=== PATIENT | female | born 1965 | race African-American/Black ===

== ENCOUNTER 2020-07-16 16:26 | Emergency (ER) | payer OTHER ==
[~2020-07-16] VITALS: Ht 167.6 cm; Wt 122.5 kg
[2020-07-16] MEDS ORDERED: PREDNISONE5 MG PO (17:28)
[2020-07-16] MEDS ORDERED: ATENOLOL25 MG PO (17:29)
[2020-07-16] MEDS ORDERED: COZAAR25 MG PO (17:29)
[2020-07-16] MEDS ORDERED: PLAQUENIL200 MG PO (17:29)
[2020-07-16] MEDS ORDERED: FOLIC ACID1 MG PO (17:30)
[2020-07-16] MEDS ORDERED: NORVASC5 MG PO (17:30)
[2020-07-16] MEDS ORDERED: VITAMIN D325 MC2 PO (17:30)
[2020-07-16] MEDS ORDERED: BIOTIN1 MG PO (17:31)
[2020-07-16] MEDS ORDERED: ONE-DAILY MULT1 EAC1 PO (17:31)
[2020-07-16] MEDS ORDERED: K-TAB ER20 MEQ PO (17:31)
[2020-07-16] MEDS ORDERED: ENBREL50 MG/1 M1 SUB-Q (17:32)
[2020-07-16] MEDS ORDERED: OCUFLOX5 ML OPTH (18:29)
== END 2020-07-16 19:02 | disposition home or self-care (01) ==
LOC: ED 16:26
DX: H18.822 Corneal disorder due to contact lens, left eye (principal); I10 Essential (primary) hypertension; Z88.5 Allergy status to narcotic agent; Z79.899 Other long term (current) drug therapy; Z79.52 Long term (current) use of systemic steroids
CPT/HCPCS: 99283